=== PATIENT | male | born 1980 | race Caucasian/White ===

== ENCOUNTER 2021-04-21 13:09 | Inpatient (IN) | payer MEDICARE, OTHER ==
[~2021-04-21] VITALS: Ht 157.5 cm; Wt 43.1 kg
[2021-04-21 15:02] LABS: HEMOGLOBIN 13.2 gm/dl (14.0-17.5); RED BLOOD COUNT 4.13 M/UL (4.20-5.50); WHITE BLOOD COUNT 9.4 K/UL (4.5-11.0)
[2021-04-21 15:32] LABS: BUN/CREATININE RATIO 66 (0-10)
[2021-04-21] MEDS ORDERED: PROTONIX 40 MG40 M1 PO (18:13)
[2021-04-21] MEDS ORDERED: LEVETIRACETAM500 MG PO ×2 (18:14→18:15)
[2021-04-21] MEDS ORDERED: SYNTHROID75 MCG PO (18:15)
[2021-04-21] MEDS ORDERED: OXCARBAZEPINE300 MG PO (18:15)
[2021-04-21] MEDS ORDERED: LORATADINE10 MG PO (18:15)
[2021-04-22 07:58] LABS: HEMOGLOBIN 10.7 gm/dl (14.0-17.5); RED BLOOD COUNT 3.37 M/UL (4.20-5.50)
[2021-04-22 08:10] LABS: BUN/CREATININE RATIO 31 (0-10)
[2021-04-22 19:30] LABS: BUN/CREATININE RATIO 23 (0-10)
[2021-04-23 07:42] LABS: BUN/CREATININE RATIO 15 (0-10)
[2021-04-23 08:30] LABS: HEMOGLOBIN 10.1 gm/dl (14.0-17.5); RED BLOOD COUNT 3.27 M/UL (4.20-5.50); WHITE BLOOD COUNT 8.1 K/UL (4.5-11.0)
[2021-04-23 19:10] LABS: BUN/CREATININE RATIO 11 (0-10)
[2021-04-23 22:33] LABS: BUN/CREATININE RATIO 9 (0-10)
[2021-04-24 05:21] LABS: HEMOGLOBIN 10.1 gm/dl (14.0-17.5); RED BLOOD COUNT 3.26 M/UL (4.20-5.50); WHITE BLOOD COUNT 6.6 K/UL (4.5-11.0)
[2021-04-24 05:57] LABS: BUN/CREATININE RATIO 8 (0-10)
[2021-04-24 19:50] LABS: BUN/CREATININE RATIO 6 (0-10)
[2021-04-25 02:10] LABS: HEMOGLOBIN 10.6 gm/dl (14.0-17.5); RED BLOOD COUNT 3.34 M/UL (4.20-5.50); WHITE BLOOD COUNT 6.6 K/UL (4.5-11.0)
[2021-04-25 02:25] LABS: BUN/CREATININE RATIO 5 (0-10)
--- NOTE | 2021-04-25 14:19 | NUR ---
DISCUSSED IDEA OF PEG TUBE PLACEMENT WITH PT SISTER PER DIETARY REQUEST. FAMILY DID NOT HAVE ANY INTEREST IN THIS INTERVENTION. SAID PT "EATS FINE AT HOME."
--- NOTE | 2021-04-25 15:02 | NUR ---
CHANGED PT WOUND DRESSINGS ORDERED. COVERED WITH DAMP 4X4 AND ALLEVYN. PT TOLERATED WELL. WCTM.
[2021-04-26 03:10] LABS: HEMOGLOBIN 11.1 gm/dl (14.0-17.5); RED BLOOD COUNT 3.5 M/UL (4.20-5.50); WHITE BLOOD COUNT 7.9 K/UL (4.5-11.0)
[2021-04-26 03:55] LABS: BUN/CREATININE RATIO 5 (0-10)
[2021-04-26] MEDS ORDERED: LEVOFLOXACIN500 MG PO (09:01)
[2021-04-26] MEDS ORDERED: BACTRIM DS TAB1 EACH PO (09:01)
--- NOTE | 2021-04-26 15:43 | NUR ---
REPORT GIVEN TO [facility] . PT DIDIER SENT HOME WITH SUPPLIES FOR WOUND CARE AND RECEIVED DEMONSTRATION IN THE ROOM WHILE I CHANGED PT DRESSING. PT LEFT WITH [facility]
== END 2021-04-26 15:40 | disposition home or self-care (01) | DRG 853 ==
LOC: ER1 13:09 → CDU 17:33 → CCU 04-22 11:37 → PROG CARE 04-24 19:14
PROVIDERS: Internal Medicine; Internal Medicine Nephrology; Physician Assistant; ADMIT Internal Medicine
PROC: 3E03329 Introduction of Other Anti-infective into Peripheral Vein, Percutaneous Approach (ICD-10-PCS; 2021-04-21)
PROC: 05HM33Z Insertion of Infusion Device into Right Internal Jugular Vein, Percutaneous Approach (ICD-10-PCS; principal; 2021-04-22)
PROC: B543ZZA Ultrasonography of Right Jugular Veins, Guidance (ICD-10-PCS; 2021-04-22)
PROC: 0JB70ZZ Excision of Back Subcutaneous Tissue and Fascia, Open Approach (ICD-10-PCS; 2021-04-23)
DX: A41.59 Other Gram-negative sepsis (principal); L89.313 Pressure ulcer of right buttock, stage 3; L89.153 Pressure ulcer of sacral region, stage 3; R65.21 Severe sepsis with septic shock; J18.9 Pneumonia, unspecified organism; J69.0 Pneumonitis due to inhalation of food and vomit; K72.00 Acute and subacute hepatic failure without coma; J96.01 Acute respiratory failure with hypoxia; E87.0 Hyperosmolality and hypernatremia; N13.30 Unspecified hydronephrosis; G91.9 Hydrocephalus, unspecified; E87.3 Alkalosis; I96 Gangrene, not elsewhere classified; R64 Cachexia; Z68.1 Body mass index [BMI] 19.9 or less, adult; L89.320 Pressure ulcer of left buttock, unstageable; E87.8 Other disorders of electrolyte and fluid balance, not elsewhere classified; E86.0 Dehydration; N20.0 Calculus of kidney; H55.00 Unspecified nystagmus; K56.41 Fecal impaction; E87.6 Hypokalemia; G40.909 Epilepsy, unspecified, not intractable, without status epilepticus; G80.9 Cerebral palsy, unspecified; Z90.49 Acquired absence of other specified parts of digestive tract; Z98.890 Other specified postprocedural states; Z80.1 Family history of malignant neoplasm of trachea, bronchus and lung; Z80.0 Family history of malignant neoplasm of digestive organs; Z74.01 Bed confinement status
CPT/HCPCS: 36415; 51702; 71045; 80048; 80053; 80183; 80202; 81001; 82550; 82553; 82803; 83605; 83735; 83880; 84100; 84132; 84484; 85025; 85027; 85652; 86140; 87040; 87070; 87077; 87086; 87186; 87205; 92526; 92610; 96372; 96374; 96375; 96376; 99284; A6212; C1751; C9113; J0713; J1650; J1953; J2060; J2543; J3370; J3480; J7030; J7070; J7120; U0002

== ENCOUNTER 2021-07-28 20:46 | Inpatient (IN) | payer MEDICARE, OTHER ==
[~2021-07-28] VITALS: Ht 157.5 cm; Wt 34.2 kg
[~2021-07-28 20:46] MED LIST: BACTRIM DS TAB1 EACH PO; LEVETIRACETAM500 MG PO; LEVOFLOXACIN500 MG PO; LORATADINE10 MG PO; OXCARBAZEPINE300 MG PO; PROTONIX 40 MG40 M1 PO; SYNTHROID75 MCG PO
[2021-07-28 22:21] LABS: HEMOGLOBIN 11.9 gm/dl (14.0-17.5); RED BLOOD COUNT 3.89 M/UL (4.20-5.50)
[2021-07-28 23:08] LABS: BUN/CREATININE RATIO 56 (0-10)
[2021-07-29] MEDS ORDERED: SANTYL OINT 3030 GM TP (02:34)
[2021-07-29 03:31] LABS: BUN/CREATININE RATIO 50 (0-10)
[2021-07-29 07:28] LABS: BUN/CREATININE RATIO 59 (0-10)
[2021-07-29 14:57] LABS: BUN/CREATININE RATIO 52 (0-10)
[2021-07-30 03:13] LABS: BUN/CREATININE RATIO 43 (0-10)
--- NOTE | 2021-07-30 11:41 | NUR ---
PER , OKAY TO USE PEG TUBE FOR MEDICATIONS AT NOON ON 07/30/21.
[2021-07-31 05:02] LABS: BUN/CREATININE RATIO 26 (0-10)
--- NOTE | 2021-07-31 09:31 | NUR ---
PATIENT WAS IN RESP. DISTRESS WITH AND FAMILY ON THE FLOOR. SPOKE WITH FAMILY ABOUT INTUBATION. INTUBATED PATIENT AT 0819. PATIENT HR BEGAN TO DROP AT 0827 TO 42. AT BEDSIDE ORDERED TO GIVE 1 OF EPI AND 1 OF ATROPINE. PATIENT DID NOT LOSE PULSE DURING THE EVENT. PATIENT WAS ALREADY ON LEVO PRIOR TO INTUBATION, BUT LEVO WAS THEN INCREASED AND VERSED STARTED. PACER PADS WERE APPLIED TO PATIENT DURING EVENT. PATIENT IS STABLE WITH HR OF 75, BP 101/83 (88). 100% ON THE VENT.
[2021-07-31 14:13] LABS: HEMOGLOBIN 11.4 gm/dl (14.0-17.5); RED BLOOD COUNT 3.75 M/UL (4.20-5.50); WHITE BLOOD COUNT 10.5 K/UL (4.5-11.0)
[2021-07-31 14:38] LABS: BUN/CREATININE RATIO 24 (0-10)
[2021-08-01 04:15] LABS: HEMOGLOBIN 11.4 gm/dl (14.0-17.5); RED BLOOD COUNT 3.77 M/UL (4.20-5.50); WHITE BLOOD COUNT 9.2 K/UL (4.5-11.0)
[2021-08-01 04:44] LABS: BUN/CREATININE RATIO 19 (0-10)
[2021-08-02 04:57] LABS: HEMOGLOBIN 9.9 gm/dl (14.0-17.5); WHITE BLOOD COUNT 7.8 K/UL (4.5-11.0)
[2021-08-02 05:07] LABS: RED BLOOD COUNT 3.28 M/UL (4.20-5.50)
[2021-08-02 05:24] LABS: BUN/CREATININE RATIO 15 (0-10)
[2021-08-02 12:37] LABS: BUN/CREATININE RATIO 16 (0-10)
[2021-08-03 05:03] LABS: HEMOGLOBIN 10.1 gm/dl (14.0-17.5); RED BLOOD COUNT 3.37 M/UL (4.20-5.50); WHITE BLOOD COUNT 7.6 K/UL (4.5-11.0)
[2021-08-03 16:50] LABS: BUN/CREATININE RATIO 15 (0-10)
[2021-08-04 01:44] LABS: HEMOGLOBIN 9.8 gm/dl (14.0-17.5); RED BLOOD COUNT 3.27 M/UL (4.20-5.50); WHITE BLOOD COUNT 6.6 K/UL (4.5-11.0)
[2021-08-04 02:18] LABS: BUN/CREATININE RATIO 18 (0-10)
[2021-08-04 09:31] LABS: BUN/CREATININE RATIO 20 (0-10)
[2021-08-04 21:51] LABS: BUN/CREATININE RATIO 15 (0-10)
[2021-08-05 04:58] LABS: HEMOGLOBIN 8.9 gm/dl (14.0-17.5); WHITE BLOOD COUNT 5.9 K/UL (4.5-11.0)
[2021-08-05 05:06] LABS: RED BLOOD COUNT 2.91 M/UL (4.20-5.50)
[2021-08-05 05:15] LABS: BUN/CREATININE RATIO 15 (0-10)
[2021-08-06 05:26] LABS: HEMOGLOBIN 8.1 gm/dl (14.0-17.5); RED BLOOD COUNT 2.67 M/UL (4.20-5.50); WHITE BLOOD COUNT 5.8 K/UL (4.5-11.0)
[2021-08-06 16:29] LABS: BUN/CREATININE RATIO 17 (0-10)
[2021-08-07 05:27] LABS: HEMOGLOBIN 8.4 gm/dl (14.0-17.5); RED BLOOD COUNT 2.81 M/UL (4.20-5.50); WHITE BLOOD COUNT 6.8 K/UL (4.5-11.0)
[2021-08-07 05:56] LABS: BUN/CREATININE RATIO 18 (0-10)
[2021-08-09 04:11] LABS: HEMOGLOBIN 7.9 gm/dl (14.0-17.5); RED BLOOD COUNT 2.6 M/UL (4.20-5.50); WHITE BLOOD COUNT 6.2 K/UL (4.5-11.0)
[2021-08-09 04:37] LABS: BUN/CREATININE RATIO 21 (0-10)
--- NOTE | 2021-08-09 16:02 | NUR ---
WOUND CARE DONE FOR PT. DRESSINGS CHANGED WET TO DRY.
[2021-08-10 03:18] LABS: HEMOGLOBIN 7.6 gm/dl (14.0-17.5); RED BLOOD COUNT 2.5 M/UL (4.20-5.50)
[2021-08-10 03:47] LABS: BUN/CREATININE RATIO 23 (0-10)
[2021-08-11 04:54] LABS: HEMOGLOBIN 7.7 gm/dl (14.0-17.5); RED BLOOD COUNT 2.52 M/UL (4.20-5.50); WHITE BLOOD COUNT 8.1 K/UL (4.5-11.0)
[2021-08-11 05:15] LABS: BUN/CREATININE RATIO 26 (0-10)
[2021-08-12 14:58] LABS: HEMOGLOBIN 7.5 gm/dl (14.0-17.5); RED BLOOD COUNT 2.49 M/UL (4.20-5.50); WHITE BLOOD COUNT 6.6 K/UL (4.5-11.0)
[2021-08-12 15:48] LABS: BUN/CREATININE RATIO 27 (0-10)
[2021-08-13 04:11] LABS: RED BLOOD COUNT 3.36 M/UL (4.20-5.50); WHITE BLOOD COUNT 8.3 K/UL (4.5-11.0)
[2021-08-13 04:27] LABS: BUN/CREATININE RATIO 27 (0-10)
[2021-08-14 03:50] LABS: WHITE BLOOD COUNT 6.3 K/UL (4.5-11.0)
[2021-08-14 03:54] LABS: RED BLOOD COUNT 2.99 M/UL (4.20-5.50)
[2021-08-14 04:05] LABS: BUN/CREATININE RATIO 31 (0-10)
[2021-08-15 02:28] LABS: RED BLOOD COUNT 3.02 M/UL (4.20-5.50); WHITE BLOOD COUNT 6.5 K/UL (4.5-11.0)
[2021-08-15 03:16] LABS: BUN/CREATININE RATIO 30 (0-10)
[2021-08-16 11:49] LABS: HEMOGLOBIN 8.7 gm/dl (14.0-17.5); RED BLOOD COUNT 2.92 M/UL (4.20-5.50); WHITE BLOOD COUNT 5.2 K/UL (4.5-11.0)
[2021-08-16 12:11] LABS: BUN/CREATININE RATIO 30 (0-10)
[2021-08-17 03:52] LABS: HEMOGLOBIN 8.7 gm/dl (14.0-17.5); RED BLOOD COUNT 2.9 M/UL (4.20-5.50); WHITE BLOOD COUNT 5.5 K/UL (4.5-11.0)
[2021-08-17 04:35] LABS: BUN/CREATININE RATIO 30 (0-10)
[2021-08-18 02:29] LABS: HEMOGLOBIN 9.2 gm/dl (14.0-17.5); RED BLOOD COUNT 3.09 M/UL (4.20-5.50); WHITE BLOOD COUNT 6.5 K/UL (4.5-11.0)
[2021-08-18 03:12] LABS: BUN/CREATININE RATIO 29 (0-10)
[2021-08-19 03:02] LABS: HEMOGLOBIN 8.9 gm/dl (14.0-17.5); RED BLOOD COUNT 3.01 M/UL (4.20-5.50); WHITE BLOOD COUNT 5.9 K/UL (4.5-11.0)
[2021-08-19 03:50] LABS: BUN/CREATININE RATIO 42 (0-10)
[2021-08-19] MEDS ORDERED: MIDODRINE HCL2.5 MG PEG (11:58)
[2021-08-19] MEDS ORDERED: LEVALBUTER0.63 MG/3 NEB (11:58)
[2021-08-19] MEDS ORDERED: LOPRESSOR 25 MG25 MG PEG (11:58)
[2021-08-19] MEDS ORDERED: DOCUSATE SODIU100 MG PO (11:58)
[2021-08-19] MEDS ORDERED: FERROUS SU300 MG/5 M NG (11:58)
== END 2021-08-19 19:11 | disposition home or self-care (01) | DRG 853 ==
LOC: ER1 20:46 → M/S 07-29 00:24 → PROG CARE 07-29 00:24 → CCU 07-29 00:24 → CDU 07-29 00:24 → CCU 07-29 01:21 → PROG CARE 08-14 23:58 → M/S 08-15 15:45
PROVIDERS: Internal Medicine; Internal Medicine Nephrology; Internal Medicine Pulmonary Disease; Student in an Organized Health Care Education/Training Program; ADMIT Internal Medicine
PROC: 3E043XZ Introduction of Vasopressor into Central Vein, Percutaneous Approach (ICD-10-PCS; principal; 2021-07-29)
PROC: 3E03329 Introduction of Other Anti-infective into Peripheral Vein, Percutaneous Approach (ICD-10-PCS; 2021-07-29)
PROC: 02HV33Z Insertion of Infusion Device into Superior Vena Cava, Percutaneous Approach (ICD-10-PCS; 2021-07-29)
PROC: B548ZZA Ultrasonography of Superior Vena Cava, Guidance (ICD-10-PCS; 2021-07-29)
PROC: 0DH63UZ Insertion of Feeding Device into Stomach, Percutaneous Approach (ICD-10-PCS; 2021-07-30)
PROC: 3E0G76Z Introduction of Nutritional Substance into Upper GI, Via Natural or Artificial Opening (ICD-10-PCS; 2021-07-30)
PROC: 0JBL0ZZ Excision of Right Upper Leg Subcutaneous Tissue and Fascia, Open Approach (ICD-10-PCS; 2021-07-30)
PROC: 0BH17EZ Insertion of Endotracheal Airway into Trachea, Via Natural or Artificial Opening (ICD-10-PCS; 2021-07-31)
PROC: 5A1955Z Respiratory Ventilation, Greater than 96 Consecutive Hours (ICD-10-PCS; 2021-07-31)
PROC: 5A0935A Assistance with Respiratory Ventilation, Less than 24 Consecutive Hours, High Flow/Velocity Cannula (ICD-10-PCS; 2021-07-31)
PROC: 5A09357 Assistance with Respiratory Ventilation, Less than 24 Consecutive Hours, Continuous Positive Airway Pressure (ICD-10-PCS; 2021-07-31)
PROC: 30233N1 Transfusion of Nonautologous Red Blood Cells into Peripheral Vein, Percutaneous Approach (ICD-10-PCS; 2021-08-12)
DX: A41.9 Sepsis, unspecified organism (principal); E43 Unspecified severe protein-calorie malnutrition; Z66 Do not resuscitate; Z20.822 Contact with and (suspected) exposure to COVID-19; J69.0 Pneumonitis due to inhalation of food and vomit; J96.01 Acute respiratory failure with hypoxia; L89.154 Pressure ulcer of sacral region, stage 4; L89.324 Pressure ulcer of left buttock, stage 4; R65.21 Severe sepsis with septic shock; R57.1 Hypovolemic shock; R53.2 Functional quadriplegia; G93.41 Metabolic encephalopathy; E87.0 Hyperosmolality and hypernatremia; I96 Gangrene, not elsewhere classified; Z68.1 Body mass index [BMI] 19.9 or less, adult; G80.9 Cerebral palsy, unspecified; L89.116 Pressure-induced deep tissue damage of right upper back; L89.896 Pressure-induced deep tissue damage of other site; L89.136 Pressure-induced deep tissue damage of right lower back; L89.121 Pressure ulcer of left upper back, stage 1; L89.811 Pressure ulcer of head, stage 1; G31.84 Mild cognitive impairment of uncertain or unknown etiology; R00.1 Bradycardia, unspecified; I12.9 Hypertensive chronic kidney disease with stage 1 through stage 4 chronic kidney disease, or unspecified chronic kidney disease; E88.09 Other disorders of plasma-protein metabolism, not elsewhere classified; E87.70 Fluid overload, unspecified; I50.9 Heart failure, unspecified; K63.5 Polyp of colon; E87.6 Hypokalemia; E86.0 Dehydration; L89.220 Pressure ulcer of left hip, unstageable; G40.909 Epilepsy, unspecified, not intractable, without status epilepticus; K59.09 Other constipation; Z74.01 Bed confinement status; Z90.49 Acquired absence of other specified parts of digestive tract; Z98.2 Presence of cerebrospinal fluid drainage device; Z80.1 Family history of malignant neoplasm of trachea, bronchus and lung; Z80.0 Family history of malignant neoplasm of digestive organs
CPT/HCPCS: 31500; 36415; 36430; 36600; 71045; 74018; 80048; 80053; 80202; 81001; 82550; 82553; 82728; 82803; 83540; 83550; 83605; 83735; 83880; 84100; 84132; 84295; 84484; 85025; 85027; 85045; 86140; 86850; 86900; 86901; 86920; 87040; 87070; 87077; 87081; 87086; 87186; 87205; 92526; 92610; 94002; 94003; 94640; 94660; 94664; 94668; 94760; 94762; 99285; A6212; C9113; J0171; J0330; J0461; J1205; J1335; J1650; J1940; J2185; J2250; J2270; J2370; J2765; J3370; J3475; J3480; J7030; J7040; J7070; P9016; P9047

== ENCOUNTER → 2021-10-08 | Day surgery (SDC) | payer MEDICARE, OTHER ==
[~2021-10-08] MED LIST changes: +DOCUSATE SODIU100 MG PO; +DOCUSATE SODIUM GT; +FERROUS SU300 MG/5 M GT; +FERROUS SU300 MG/5 M NG; +IBUPROFEN IB200 MG GT; +IBUPROFEN600 MG PO; +KEPPRA 100100 MG/1 M GT; +LEVALBUTER0.63 MG/3 NEB; +LOPRESSOR 25 MG25 MG PEG; +LORATADINE10 MG GT; -LORATADINE10 MG PO; +METOPROLOL TART25 MG GT; +MIDODRINE HCL2.5 MG GT; +MIDODRINE HCL2.5 MG PEG; +PROTONIX 40 MG40 M1 GT; -PROTONIX 40 MG40 M1 PO; +SANTYL OINT 3030 GM TOP; +SYNTHROID75 MCG GT; -SYNTHROID75 MCG PO; +TRILEPTAL300 MG/5 M GT
== END | disposition home or self-care (01) ==
LOC: OR 07:30
DX: L89.159 Pressure ulcer of sacral region, unspecified stage (principal); S31.000A Unspecified open wound of lower back and pelvis without penetration into retroperitoneum, initial encounter; G80.9 Cerebral palsy, unspecified; Z88.8 Allergy status to other drugs, medicaments and biological substances; Z79.899 Other long term (current) drug therapy; X58.XXXA Exposure to other specified factors, initial encounter
CPT/HCPCS: J0690; J2704; J3010